=== PATIENT | female | born 1985 | race Caucasian/White ===

== ENCOUNTER 2016-05-03 18:47 | Observation (INO) ==
[2016-05-03 19:37] LABS: Bilirubin,Urine Negative (Negative); Blood,Urine Negative (Negative); Clarity,Urine Cloudy (Clear); Color,Urine Yellow (Yellow); Glucose,Urine (UA) Normal (Normal); Ketones,Urine Negative (Negative); Leukocyte Esterase,Urine Negative (Negative); Nitrite,Urine Negative (Negative); Protein,Urine Trace mg/dL (Neg-Trace); Specific Gravity,Urine 1.027 (1.010-1.025); Urobilinogen,Urine Normal (Normal)
[2016-05-03 19:38] LABS: Bacteria,Urine Few per hpf (None-Few); Hyaline Casts,Urine None Seen per lpf (None-Few); RBC,Urine 0-3 per hpf (0-3); Squamous Epithelial Cell,Urine Many per lpf (None-Few); WBC,Urine 0-3 per hpf (0-3)
--- NOTE | 2016-05-03 20:00 | OB/GYN Progress Note ---
Date of Encounter: 05/03/16 Time of Encounter: 20:00 - Assessment and Plan (1) First in adolescent 16 years of age or older in second trimester Current Visit: Yes Status: Acute (2) 22 weeks gestation of Current Visit: Yes Status: Acute (3) Peripheral edema Current Visit: Yes Status: Acute (4) Vaginitis affecting in second trimester, antepartum Current Visit: Yes Status: Acute (5) Lower abdominal pain Current Visit: Yes Status: Acute Subjective - Subjective Interval history: Patient is a 31-year-old 1 para 0 at approximately 20-23 weeks who presented with complaint of swelling of the extremities abdominal pain and vaginal discharge. Patient had received her care in [place] that has not been seen for the last month. She states she has moved and has been unable to get established yet. Patient states our office is waiting for her to get her records sent over she has not been able to get to [place] to get that signed. The patient states that she just noticed increased swelling of her hands and feet in this lower abdominal discomfort. Patient's having upper abdominal discomfort but she has been coughing a lot not sure she just pulled a muscle. She denies dysuria urgency frequency but has been complaining of a greenish discharge May 27 days ago nothing today. She is still getting good movement. Patient states she was placed on by mouth progesterone first part of the because her progesterone level was low to just maintain the . She is no longer on that. She states that she did receive program due to some spotting earlier in the . Antepartum ROS: contractions, other (Vaginal discharge and swelling) Objective - Vital Signs Vital Signs: Intake and Output 05/03/16 05/03/16 05/03/16 07:59 15:59 23:59 Other: Weight 123.9 kg Patient Weight 05/03/16 23:59 Weight 123.9 kg - Exam FHR: category 1 FHR comments: heart tones 140s reassuring no contractions Abdomen: Present: soft, gravid Uterus: Present: normal, firm Cervical dilation: closed Cervix effacement: thick station: NE Comments: Sterile speculum exam performed on the patient no discharge seen wet mount was obtained which was negative. - Labs Labs: Abnormal lab results Urine Clarity Cloudy (Clear) A 05/03/16 19:29 Ur Specific [place] 1.027 (1.010-1.025) H 05/03/16 19:29 Ur Squamous Epith Cells Many per lpf (None-Few) H 05/03/16 19:29
== END 2016-05-03 20:20 | disposition home or self-care (01) ==
LOC: 1NENULAB
PROVIDERS: ADMIT Obstetrics & Gynecology; ATTEND Obstetrics & Gynecology

== ENCOUNTER → 2016-07-02 15:45 | Observation (INO) ==
[2016-07-02 13:43] LABS: Bilirubin,Urine Negative (Negative); Blood,Urine Negative (Negative); Clarity,Urine Cloudy (Clear); Color,Urine Yellow (Yellow); Glucose,Urine (UA) Normal (Normal); Ketones,Urine Negative (Negative); Leukocyte Esterase,Urine Moderate (Negative); Nitrite,Urine Negative (Negative); PH,Urine 6.5 pH Units (5.0-8.0); Protein,Urine Negative (Neg-Trace); Specific Gravity,Urine 1.015 (1.010-1.025); Urobilinogen,Urine Normal (Normal)
[2016-07-02 13:46] LABS: Hyaline Casts,Urine None Seen per lpf (None-Few); RBC,Urine 0-3 per hpf (0-3); Squamous Epithelial Cell,Urine Many per lpf (None-Few); WBC,Urine 15-30 per hpf (0-3)
[2016-07-02 13:54] LABS: Bacteria,Urine Few per hpf (None-Few); Calcium Oxalate Crystals,Urine Present; Yeast,Urine Few per hpf (None Seen)
--- NOTE | 2016-07-02 15:37 | Discharge Summary ---
Date of Encounter: 07/02/16 Time of Encounter: 15:35 - Discharge Diagnosis (1) 31 weeks gestation of Priority: Primary Status: Acute (2) Vaginal discharge during in third trimester Priority: Primary Status: Acute Comments: 31 and 6 weeks gestation presents to triage for increased vaginal discharge and itching, also complains of abdominal cramping. Patient called office 2 days ago and was instructed to begin Monistat [id number] for treatment of yeast infection symptoms. Patient states she only started the Monistat last night. Speculum exam shows thick white discharge in vaginal vault and cervical exam shows closed and thick cervix. Urinalysis positive for yeast and few bacteria seen, reflex culture obtained. Patient reports good movement, denies vaginal bleeding or leaking of thin clear liquid. Discussed with patient she needs to continue using the 3 day Monistat cream, discharge to home discussed when to call provider and when to return to triage for evaluation. monitoring reactive and appropriate for gestational age (3) NST (non-stress test) reactive Priority: Secondary Status: Acute Comments: Baseline 135 - Discharge Medications Home Medications: Vit/Iron Fumarate/FA [ Tablet] 1 each PO DAILY 05/03/16 [ History] Allergies/Adverse Reactions: Allergies No Known Allergies Allergy (Verified 05/03/16 19:10) Data Procedures and tests throughout hospitalization: Laboratory Tests 07/02/16 13:15 Urine Color Yellow Urine Clarity Cloudy A Urine pH 6.5 Ur Specific [place] 1.015 Urine Protein Negative Urine Glucose (UA) Normal Urine Ketones Negative Urine Blood Negative Urine Nitrite Negative Urine Bilirubin Negative Urine Urobilinogen Normal Ur Leukocyte Esterase Moderate H Urine Microscopic RBC 0-3 Urine Microscopic WBC 15-30 H Ur Squamous Epith Cells Many H Calcium Oxalate Crystal Present Urine Bacteria Few Hyaline Casts None Seen Urine Yeast Few H Ur Culture Indicated? YES A Labs on day of discharge: Labs from last 24 hours 07/02/16 13:15 Urine Color Yellow Urine Clarity Cloudy A Urine pH 6.5 Ur Specific [place] 1.015 Urine Protein Negative Urine Glucose (UA) Normal Urine Ketones Negative Urine Blood Negative Urine Nitrite Negative Urine Bilirubin Negative Urine Urobilinogen Normal Ur Leukocyte Esterase Moderate H Urine Microscopic RBC 0-3 Urine Microscopic WBC 15-30 H Ur Squamous Epith Cells Many H Calcium Oxalate Crystal Present Urine Bacteria Few Hyaline Casts None Seen Urine Yeast Few H Ur Culture Indicated? YES A Date of admission: 07/02/16 12:19 Primary care physician: PCP NO Discharging clinician: Ludmila Tapia Anticipated date of discharge: 07/02/16 - Patient Status Disposition: Home, Self-Care Condition: Good Overall status at discharge: patient is back to baseline - Discharge Instructions Follow Up With: NO,PCP [Primary Care Provider] - - Diet and Activity Activity: resume usual activities as tolerated Diet: regular diet Hospital Course HEART NURSE Time Attestation: Total time spent providing and/or coordinating discharge services: Exam - Constitutional General appearance IM: A&O X 3 - Respiratory Respiratory exam: Present: CTAB - Cardiovascular Cardiovascular exam IM: Present: RRR, +S1, +S2 - GI/Abdominal GI/Abdominal exam IM: normal bowel sounds (gravid), soft - Extremities Exam Extremities exam IM: Present: normal capillary refill, normal inspection - Neurological Exam Neurological exam: normal gait, oriented X3
== END | disposition home or self-care (01) ==
LOC: 1NENULAB
PROVIDERS: ADMIT Obstetrics & Gynecology; ATTEND Obstetrics & Gynecology

== ENCOUNTER 2016-08-22 08:00 | Inpatient (IN) ==
[2016-08-22] MEDS ORDERED: Naloxone 0.4 MG/ML INJ IVP PRN (09:01)
[2016-08-22] MEDS ORDERED: Famotidine 20 MG/2 ML VIAL IVP PRN (09:01)
[2016-08-22] MEDS ORDERED: Metoclopramide 10 MG/2 ML VIAL IVP PRN (09:01)
[2016-08-22] MEDS ORDERED: *HR* Nalbuphine 20 MG/ML AMPUL IVP PRN (09:05)
[2016-08-22 09:18] LABS: Basophils # 0.1 K/mcL (0.0-0.2); Basophils % 0.3 %; Eosinophils # 0.2 K/mcL (0.0-0.6); Hematocrit 35.9 % (35.3-44.9); Hemoglobin 12.1 g/dL (11.5-15.4); Immature Granulocytes % 0.8 % (0-4); Lymphocytes # 3.1 K/mcL (0.6-4.6); Lymphocytes % 14.1 %; Mean Corpuscular HGB Conc 33.7 g/dL (31.6-35.5); Mean Corpuscular Hemoglobin 29.4 pg (28.0-33.3); Mean Corpuscular Volume 87.1 fL (83.0-100.0); Mean Platelet Volume 10.2 fL (9.4-12.4); Monocytes # 0.7 K/mcL (0.0-1.3); Neutrophils # 17.6 K/mcL (1.6-8.9); Platelet Count 433 K/mcL (140-400); Red Blood Count 4.12 M/mcL (3.82-4.97); Segmented Neutrophils % 80.8 %
[2016-08-22] MEDS: Ringers Solution, Lactated 1,000 ML IVC SCH ×2 (09:30→18:18)
[2016-08-22] MEDS: miSOPROStol 25 MCG TABLET VG SCH ×2 (09:30→13:51)
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
[2016-08-22] MEDS ORDERED: Penicillin G Potassium 5,000,000 UNIT in D5% in Water (Mini-Bag+) 100 ML IVPB ONE (10:00)
[2016-08-22] MEDS ORDERED: miSOPROStol 25 MCG TABLET VG SCH (12:00)
[2016-08-22] MEDS: Ondansetron 4 MG/2 ML VIAL IVP PRN ×2 (12:33→18:11)
[2016-08-22] MEDS: Penicillin G Potassium 2,500,000 UNIT in D5% in Water 100 ML IVPB SCH ×2 (13:50→18:12)
--- NOTE | 2016-08-22 16:40 | OB Labor Progress Note ---
Date of Encounter: 08/22/16 Time of Encounter: 16:35 Labor Progress Note - Subjective Subjective: Patient still doing well mauro catheter still in place, she has received 2 doses of Cytotec - Cervix Cervix: 2- mauro catheter palpated half out of cervix but will my come out with traction - Heart Tones Heart Tones: FHT's 140's reactive - [place]: contractions irregular - Plan Plan: Continue current care we will recheck in one hour to see if Mauro is out and we will discuss artificial rupture membranes and internal monitors to see what the contractions are doing
[2016-08-22] MEDS ORDERED: *HR* Nalbuphine 20 MG/ML AMPUL ONE (18:16)
--- NOTE | 2016-08-22 19:29 | OB Labor Progress Note ---
Date of Encounter: 08/22/16 Time of Encounter: 19:30 Labor Progress Note - Subjective Subjective: Patient is very uncomfortable and has received a dose of Nubain requesting epidural. Mauro catheter is still not out - Cervix Cervix: /-2 mauro catheter deflated and removed artificial rupture membranes meconium fluid noted - Heart Tones Heart Tones: heart tones 140s reactive scalp lead placed - [place]: IUPC placed and contractions every 2 minutes. - Plan Plan: we will get patient an epidural, will augment with Pitocin, plan is to anticipate vaginal delivery
[2016-08-22] MEDS ORDERED: Oxytocin 20 units/ LR 1000 mL 20 UNIT/1,000 ML BAG IVC SCH (19:30)
[2016-08-22] MEDS ORDERED: 0.9 % Sodium Chloride 1,000 ML ONE (19:36)
[2016-08-22] MEDS ORDERED: EPHEDrine 50 MG/ML VIAL IVP PRN (19:44)
[2016-08-22] MEDS ORDERED: Ringers Solution, Lactated 500 ML IVC ONE (19:44)
[2016-08-22] MEDS ORDERED: Epidural Premix (fent/bupiv) 110 ML EP SCH (19:45)
[2016-08-22] MEDS ORDERED: Epidural Premix (fent/bupiv) 110 ML EP ONE (19:47)
--- NOTE | 2016-08-22 20:26 | Anesthesia Evaluation PreOp ---
Date of Encounter: 08/22/16 Time of Encounter: 20:24 - Past History Planned Operation: BERNADETTE Cardiac History: Denies any Significant Hx Pulmonary History: Smoker, Pack/yr (1/2 pack/day) CURAM DEVELOPER History: Denies Any Significant HX Other Medical History: Denies Any Significant HX Anesthesia History: No Prior Anesthetic Complications Alcohol Use: none Drug use: none Medications and Allergies Vit/Iron Fumarate/FA [ Tablet] 1 each PO DAILY 05/03/16 [ History] Allergies No Known Allergies Allergy (Verified 08/22/16 08:49) - Meds/Allergy Pre-op Review Medications Reviewed: Yes Allergies Reviewed: Yes Beta Blockers on Current Med List: No Anesthesia Results - Labs 08/22/16 08:55 Anesthesia Exam Height: 5'4" Weight: 128kg NPO (# of Hours): 8 Pain Scale: 10 Pain Scale Used: Numeric (1 - 10) - HEENT Pupil (Motor): Pupils equal Mallampati: II Teeth: Normal Oral Opening: Greater than 3 - CURAM DEVELOPER LOC: Oriented CURAM DEVELOPER Motor: Normal RUE, Normal LUE, Normal RLE, Normal LLE, Normal Face CURAM DEVELOPER Sensory: Normal: RUE, LUE, RLE, LLE, Face - Cardiac Rhythm: Regular Murmur: None JVD: No Carotid Bruit: No - Pulmonary Breath Sounds: bilateral Clear Respiratory Effort: Symmetrical Anesthesia Assess/Plan ASA Score: 3 Modified [place] Scale for Level of Consciousness: Cooperative, oriented, and tranquil Anesthetic Plan: General (plan b), Regional (plan a) Autologous Blood: Yes Monitoring Plan: Standard Monitors
--- NOTE | 2016-08-22 20:28 | Anesthesia Procedures ---
Date of Encounter: 08/22/16 Time of Encounter: 20:26 Procedures: Anesthesia - Epidural/Spinal Patient ID/Chart reviewed: Yes Patient examined: Yes OB Eval: Gestational age: 39.1 OB Eval: : 3 OB Eval: Hx Para: 0 OB Eval: Dilated at (cm): 4 OB Eval: Contractions: Non-stressed pattern Consent Obtained: Yes Supplemental Oxygen: None/Room Air Site Prep: Aseptic Technique, Sterile prep and drape, Povidone-Iodine 1% Patient position: upright Local Anesthetic: Lidocaine 1% Amount of Local Anesthetic used: 3 Touhy Needle Gauge: 18 Touhy Needle Depth (cm): 10 Catheter Depth at Skin (cm): 20 Test Dose (1.5% Lido + Epi): Volume given (mls): 5 Test Dose Result: Negative Loading Dose: Other: 8mls of epidural pharm bag premix solution Loading Dose Administered: Thru Catheter Infusion Med: 0.125% Bupivacaine w/ 2 mcg/ml Fentanyl Infusion Rate (mls/hr): 14 ([id number]) Catheter Secured in Place: Tegaderm, Tape Interspace Used: L3-L4 Loss of Resistance (DANGELO): Yes Blood: No CSF: No Paresthesia: No Procedure: pt tolerated procedure well. no complications. vss. fhr stable 125/58 hr 60 135/63 hr 60 141/62 hr 60
[2016-08-22] MEDS ORDERED: Lidocaine/EPI 1:200k 2% PF 20 ML VIAL ONE (22:23)
[2016-08-22] MEDS ORDERED: Chloroprocaine/PF 20 ML VIAL INFILT ONE (22:23)
--- NOTE | 2016-08-22 22:23 | OB Labor Progress Note ---
Date of Encounter: 08/22/16 Time of Encounter: 22:20 Labor Progress Note - Subjective Subjective: Patient still comfortable with epidural started to have repetitive late decelerations. Patient has made no cervical change with adequate contractions and 4 hours and a section has been called. - Cervix Cervix: 4/80/-3 - Heart Tones Heart Tones: heart tones 140s with repetitive late decelerations - Peter Peter: Contractions every 2 minutes adequate greater than 240 montivedeo units - Plan Plan: Pitocin has been turned off patient is being prepared for a primary low transverse section
[2016-08-22] MEDS ORDERED: *HR* Oxytocin 10 UNIT/ML VIAL IM ONE (22:24)
[2016-08-22] MEDS ORDERED: EPHEDrine 50 MG/ML VIAL ONE (22:25)
[2016-08-22] MEDS ORDERED: ceFAZolin 3,000 MG in D5% in Water 100 ML IVPB ONE (22:41)
[2016-08-22] MEDS ORDERED: Ringers Solution, Lactated 1,000 ML ONE (22:54)
[2016-08-22] MEDS ORDERED: Vancomycin 2,000 MG in D5% in Water 250 ML IVPB SCH (23:00)
[2016-08-22] MEDS ORDERED: Vancomycin 2,000 MG in D5% in Water 500 ML IVPB SCH (23:00)
[2016-08-22] MEDS ORDERED: *HR* Morphine Sulfate/PF 5 MG/10 ML AMPUL ONE (23:05)
[2016-08-22] MEDS ORDERED: Ondansetron 4 MG/2 ML VIAL IVP ONE (23:12)
[2016-08-22] MEDS ORDERED: Ringers Solution, Lactated 1,000 ML IVC SCH (23:15)
[2016-08-22] MEDS ORDERED: Ondansetron 4 MG/2 ML VIAL ONE (23:28)
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
[2016-08-23] MEDS: *HR* HYDROmorphone (PF) 1 MG/ML SYRINGE IVP PRN ×2 (00:50→01:22)
[2016-08-23] MEDS ORDERED: *HR* HYDROmorphone (PF) 1 MG/ML SYRINGE IVP PRN (00:56)
[2016-08-23] MEDS ORDERED: *HR* Morphine 2 MG/ML SYRINGE IVP PRN (00:56)
[2016-08-23] MEDS ORDERED: Simethicone 80 MG TAB.CHEW PO PRN (02:43)
[2016-08-23] MEDS ORDERED: Naloxone 0.4 MG/ML INJ IVP PRN (02:43)
[2016-08-23] MEDS ORDERED: Sennosides 8.6 MG TABLET PO PRN (02:43)
[2016-08-23] MEDS ORDERED: Ondansetron 4 MG/2 ML VIAL IVP PRN (02:43)
[2016-08-23] MEDS ORDERED: Metoclopramide 10 MG/2 ML VIAL IVP PRN (02:43)
[2016-08-23] MEDS ORDERED: Ringers Solution, Lactated 1,000 ML IVC SCH (02:43)
[2016-08-23] MEDS ORDERED: Rho Immune Globulin 1,500 UNIT SYRINGE IM ONE (02:43)
[2016-08-23] MEDS ORDERED: Oxytocin 20 units/ LR 1000 mL 20 UNIT/1,000 ML BAG IVC SCH (02:43)
[2016-08-23] MEDS: *HR* OxyCODONE/APAP 5/325 TABLET PO PRN ×4 (03:43→23:02)
[2016-08-23 05:41] LABS: Basophils # 0.1 K/mcL (0.0-0.2); Basophils % 0.3 %; Eosinophils # 0.1 K/mcL (0.0-0.6); Eosinophils % 0.4 %; Hematocrit 31.6 % (35.3-44.9); Immature Granulocytes % 0.6 % (0-4); Lymphocytes # 3.5 K/mcL (0.6-4.6); Lymphocytes % 15.6 %; Mean Corpuscular HGB Conc 32.6 g/dL (31.6-35.5); Mean Corpuscular Hemoglobin 28.7 pg (28.0-33.3); Mean Platelet Volume 10.6 fL (9.4-12.4); Monocytes # 0.9 K/mcL (0.0-1.3); Monocytes % 3.8 %; Neutrophils # 17.9 K/mcL (1.6-8.9); Platelet Count 360 K/mcL (140-400); Red Blood Count 3.59 M/mcL (3.82-4.97); Segmented Neutrophils % 79.3 %
[2016-08-23 05:44] LABS: Hemoglobin 10.3 g/dL (11.5-15.4)
--- NOTE | 2016-08-23 08:39 | OB/GYN Progress Note ---
Date of Encounter: 08/23/16 Time of Encounter: 08:37 - Assessment and Plan (1) Status post delivery Current Visit: Yes Status: Acute Routine postop/ care. Advance to regular diet. Subjective - Subjective Principal diagnosis: POD #1 primary c/s Interval history: Patient denies any complaints. She would like a regular diet. Pain is well controlled. She denies any concerns. Patient reports: appetite normal, pain well controlled, no nauseated [place]: doing well Objective - Vital Signs Latest vital signs: Vital Signs Temp Pulse Resp BP Pulse Ox 08/23/16 07:30 98.5 F 79 16 103/62 08/23/16 05:46 97.9 F 65 18 96/66 96 08/23/16 04:45 98.4 F 72 16 103/55 95 08/23/16 03:45 97.9 F 80 16 120/62 96 08/23/16 03:15 98.1 F 70 16 129/69 97 08/23/16 02:45 98 F 64 14 121/66 94 Intake and Output 08/22/16 08/23/16 08/23/16 23:59 07:59 15:59 Intake Total 1000 / 1000 1000 / 1000 Output Total 2100 / 2100 Balance 1000 / 1000 -1100 / -1100 Intake: IV Fluids 1000 / 1000 Lactated Ringers 1,000 ML 1000 / 1000 @ 125 mls/hr IVC .Q8H NIMA Rx#:[id number] Intake, Autotransfusion 1000 / 1000 Amount Output: Urine 400 / 400 Urethral (Polanco) 400 / 400 Estimated Blood Loss 700 / 700 Catheter 1000 / 1000 Other: Weight 124.936 kg Patient Weight 08/23/16 23:59 Weight 124.936 kg - Exam Lungs: bilateral: normal Chest: Normal S1, Normal S2 Extremities: Present: normal Abdomen: Present: normal appearance, soft. Absent: distention, tenderness Incision: Present: dressed Uterus: Present: normal, firm - Labs Labs: Laboratory Results - last 24 hr 08/22/16 08/23/16 08/23/16 08:55 01:21 04:53 WBC 21.7 H 22.6 H RBC 4.12 3.59 L Hgb 12.1 10.3 L D Hct 35.9 31.6 L MCV 87.1 88.0 MCH 29.4 28.7 MCHC 33.7 32.6 RDW 13.0 13.0 Plt Count 433 H 360 MPV 10.2 10.6 Immature Gran % 0.8 0.6 Seg Neutrophils % 80.8 79.3 Lymphocytes % 14.1 15.6 Monocytes % 3.0 3.8 Eosinophils % 1.0 0.4 Basophils % 0.3 0.3 Neutrophils # 17.6 H 17.9 H Lymphocytes # 3.1 3.5 Monocytes # 0.7 0.9 Eosinophils # 0.2 0.1 Basophils # 0.1 0.1 Baby's Blood Type O RH NEGATIVE Mother's Blood Type O RH NEGATIVE Rhogam Indicated NO
[2016-08-23] MEDS: Prenatal Vit/FA 1 EACH TABLET PO SCH (08:43)
[2016-08-23] MEDS ORDERED: Prenatal Vit/FA 1 EACH TABLET PO SCH (09:00)
[2016-08-23] MEDS: *HR* OxyCODONE/APAP 10/325 TABLET PO PRN (18:05)
[2016-08-23] MEDS: Ibuprofen 600 MG TABLET PO PRN (20:34)
[2016-08-24] MEDS: *HR* OxyCODONE/APAP 10/325 TABLET PO PRN (06:44)
[2016-08-24] MEDS: Ibuprofen 600 MG TABLET PO PRN (07:49)
[2016-08-24] MEDS: Prenatal Vit/FA 1 EACH TABLET PO SCH (07:50)
[2016-08-24 08:21] VITALS: BP 103/59
--- NOTE | 2016-08-24 11:24 | Discharge Summary ---
Date of Encounter: 08/24/16 Time of Encounter: 11:22 - Discharge Diagnosis (1) Mother currently breast-feeding Priority: Secondary Status: Acute (2) Status post delivery Priority: Primary Status: Acute Comments: Patient meeting post-op milestones as expected. - Discharge Medications Prescriptions: OxyCODONE/APAP 5/325 [Percocet 5/325 MG] 1 each PO Q4HR PRN #30 tablet PRN Reason: Moderate pain 4-6 Ibuprofen [Motrin] 600 mg PO Q6HR PRN #60 tablet PRN Reason: Cramping Breast Pump [BREAST PUMP] 1 each .ROUTE AD #1 each Docusate [Colace] 100 mg PO BID #60 capsule Home Medications: Vit/Iron Fumarate/FA [ Tablet] 1 each PO DAILY 05/03/16 [ History] Breast Pump [BREAST PUMP] 1 each .ROUTE AD #1 each 08/24/16 [Rx] Docusate [Colace] 100 mg PO BID #60 capsule 08/24/16 [Rx] Ibuprofen [Motrin] 600 mg PO Q6HR PRN #60 tablet 08/24/16 [Rx] OxyCODONE/APAP 5/325 [Percocet 5/325 MG] 1 each PO Q4HR PRN #30 tablet 08/24/16 [Rx] Allergies/Adverse Reactions: Allergies No Known Allergies Allergy (Verified 08/22/16 08:49) Data Procedures and tests throughout hospitalization: Laboratory Tests 08/22/16 08/23/16 08/23/16 08:55 01:21 04:53 WBC 21.7 H 22.6 H RBC 4.12 3.59 L Hgb 12.1 10.3 L D Hct 35.9 31.6 L MCV 87.1 88.0 MCH 29.4 28.7 MCHC 33.7 32.6 RDW 13.0 13.0 Plt Count 433 H 360 MPV 10.2 10.6 Immature Gran % 0.8 0.6 Seg Neutrophils % 80.8 79.3 Lymphocytes % 14.1 15.6 Monocytes % 3.0 3.8 Eosinophils % 1.0 0.4 Basophils % 0.3 0.3 Neutrophils # 17.6 H 17.9 H Lymphocytes # 3.1 3.5 Monocytes # 0.7 0.9 Eosinophils # 0.2 0.1 Basophils # 0.1 0.1 Baby's Blood Type O RH NEGATIVE Mother's Blood Type O RH NEGATIVE Rhogam Indicated NO Date of admission: 08/22/16 08:27 Primary care physician: PCP NO Discharging clinician: Trini Cedillo Anticipated date of discharge: 08/24/16 - Patient Status Disposition: Home, Self-Care Condition: Good Functional capacity at discharge: independent ambulation Overall status at discharge: patient is progressing back to baseline - Discharge Instructions Follow Up With: NO,PCP [Primary Care Provider] - Sergio Ross DO [Partnered Physician] - - Diet and Activity Activity: increase activity as tolerated Diet: regular diet Hospital Course Reason for admission: induction of labor Delivery: section Episiotomy: none Laceration: none Other procedures: none complications: none Discharge diagnosis: IUP at term delivered [place] baby: male Hospital course: - Date of procedure: 08/23/16 Preop diagnosis: other (Intrauterine at 39 and 2/7 weeks, failure to progress, nonreassuring heart tones category 3 strip with repetitive late decelerations) Post-op diagnosis: same Procedure: primary low transverse Surgeon: Sergio Ross Estimated blood loss (cc): 700 Anesthesiologist: Dale Byrne Fresh Work Inspector: Oliver Saleem Anesthesia Type: Epidural section complications: none Disposition: L&D Recovery Room Specimens: Placenta - (s) A Delivery Date: 08/22/16 Infant Delivery Time: 23:14 Presentation: vertex Route of delivery: other ( section) Gender: Male Viability: Viable Pounds: 6 Ounces: 14 Gram Weight: 3.105 kg at 1 minute: 8 at 5 minutes: 9 Shoulder Dystocia: not encountered Specimens collected: cord blood Placenta: spontaneous Cord: 3 umbilical vessels Time Attestation: Total time spent providing and/or coordinating discharge services: Time Spent: Less than 30 minutes - VTE Reasons for not Prescribing Prophylaxis: Medical contraindication Documentation of Mechanical Device: Intermittent pneumatic compression device Exam - Constitutional Vitals: Temp Pulse Resp BP Pulse Ox 98.3 F 76 16 103/59 97 08/24/16 07:50 08/24/16 07:50 08/24/16 07:50 08/24/16 07:50 08/23/16 19:30 General appearance IM: cooperative, A&O X 3, pleasant, no acute distress, obese - Respiratory Respiratory exam: Present: CTAB - Cardiovascular Cardiovascular exam IM: Present: RRR, +S1, +S2 - GI/Abdominal GI/Abdominal exam IM: normal bowel sounds, soft Incision: normal, dry, intact - Rectal Rectal exam: deferred - External exam: normal external exam Uterine Tone: Firm Uterus Position: 2 Fingers Below Umbilicus - Extremities Exam Extremities exam IM: Present: full ROM, pedal edema (+1 edema to BLE) - Neurological Exam Neurological exam: alert, normal gait, oriented X3 - Psychiatric Additional comments: Reports good mood.
== END 2016-08-24 15:30 | disposition home or self-care (01) | DRG 540 ==
LOC: 1NENULAB 08:27 → 1NENUOBS 08-23 03:23
PROVIDERS: ADMIT Obstetrics & Gynecology; ATTEND Obstetrics & Gynecology

== ENCOUNTER 2017-01-24 15:33 | Inpatient (IN) ==
[~2017-01-24 15:33] MED LIST: Aminoglycoside Consult 1 EACH MC ONE
[2017-01-24] MEDS ORDERED: Ketorolac 15 MG/ML VIAL IVP ONE (16:21)
[2017-01-24] MEDS ORDERED: Vancomycin 1,750 MG in D5% in Water 500 ML IVPB ONE (16:21)
[2017-01-24 16:53] LABS: Basophils # 0.1 K/mcL (0.0-0.2); Basophils % 0.5 %; Eosinophils # 0.6 K/mcL (0.0-0.6); Eosinophils % 3.7 %; Hematocrit 38.8 % (35.3-44.9); Hemoglobin 13.2 g/dL (11.5-15.4); Immature Granulocytes % 0.4 % (0-4); Lymphocytes # 3.8 K/mcL (0.6-4.6); Lymphocytes % 23.1 %; Mean Corpuscular Hemoglobin 28.4 pg (28.0-33.3); Mean Corpuscular Volume 83.6 fL (83.0-100.0); Monocytes # 0.6 K/mcL (0.0-1.3); Monocytes % 3.5 %; Neutrophils # 11.4 K/mcL (1.6-8.9); Platelet Count 499 K/mcL (140-400); Red Blood Count 4.64 M/mcL (3.82-4.97); Red Cell Distribution Width 13.4 % (11.5-14.5); Segmented Neutrophils % 68.8 %
[2017-01-24 17:08] LABS: BUN/Creatinine Ratio 10 (6-26); Blood Urea Nitrogen 7 mg/dL (7-20); Calcium 8.6 mg/dL (8.6-10.8); Carbon Dioxide 22 mEq/L (19-29); Chloride 109 mEq/L (98-109); Glucose 91 mg/dL (70-99); Osmolality,Calculated 288 (280-300); Potassium 3.8 mEq/L (3.5-4.5); Sodium 140 mEq/L (136-145); eGFR For African Americans > 60 (> 60); eGFR For Non-African Americans > 60 (> 60)
--- NOTE | 2017-01-24 17:32 | Emergency Department Note ---
Disposition Clinical Impression: Failure of outpatient treatment Cellulitis Qualifiers: Site of cellulitis: unspecified site Qualified Code(s): L03.90 - Cellulitis, unspecified Disposition: Admitted As Inpatient Condition: Good Time of Disposition: 17:33 General Adult HPI - General Chief complaint: ED Skin/Abscess/Foreign Body Stated complaint: worsening cellulitis Time Seen by Provider: 01/24/17 15:42 Source: patient, family Mode of arrival: ambulatory Limitations: no limitations Nursing Notes Reviewed: Yes Vital Signs Reviewed: Yes - History of Present Illness HPI Narrative: 31-year-old female presenting to the emergency department and chief complaint of worsening cellulitis. Patient states for the past month she has been in and out of of urgent care for her worsening cellulitis. She has taken Bactrim and then clindamycin and then bactrim again. Each time she has taken the antibiotics the cellulitis has gotten better and then once she stopped them and has come back within 24 hours. Her last dose of antibiotics was yesterday. She does also disclosed subjective fevers at home along with nausea and diffuse myalgia. Patient is otherwise healthy and has no past medical history. She does not take any medications at this time besides the antibiotics she was on. Pain Scale: 8 - Related Data Home Medications Medication Instructions Recorded Confirmed Vit/Iron Fumarate/FA 1 each PO DAILY 05/03/16 08/22/16 [ Tablet] Previous Rx's Medication Instructions Recorded Breast Pump [BREAST PUMP] 1 each .ROUTE AD #1 each 08/24/16 Docusate [Colace] 100 mg PO BID #60 capsule 08/24/16 Ibuprofen [Motrin] 600 mg PO Q6HR PRN #60 tablet 08/24/16 OxyCODONE/APAP 5/325 [Percocet 1 each PO Q4HR PRN #30 tablet 08/24/16 5/325 MG] Allergies Allergy/AdvReac Type Severity Reaction Status Date / Time No Known Allergies Allergy Verified 01/24/17 15:41 All systems ED: reviewed and negative except as stated. Constitutional: Reports: fever (Subjective) Eyes: Reports: as per HPI ENT ED: Reports: as per HPI Cardiovascular: Denies: chest pain, palpitations Respiratory: Denies: cough, dyspnea, wheezes Gastrointestinal: Reports: nausea. Denies: abdominal pain, vomiting, diarrhea Genitourinary: Reports: as per HPI Musculoskeletal: Reports: myalgia Integumentary: Reports: rash Neurological: Reports: as per HPI Psychiatric: Reports: as per HPI Endocrine: Reports: as per HPI Hematological/Lymphatic: Reports: as per HPI Allergic/Immunologic: Reports: as per HPI Past Medical History - Past Medical History Attestation: Yes The following information was validated with the patient. Medical history: Reports: no medical history, other Surgical history: Reports: no surgical history Psychiatric history: Reports: anxiety, bipolar, depression - Social History Smoking Status: Current every day smoker Alcohol use: Reports: none Drug use: Reports: none Physical Exam - General Limitations: no limitations General appearance: alert, in no apparent distress - Head Head exam: atraumatic, normocephalic, normal inspection - Eye Eye exam: Present: normal appearance. Absent: scleral icterus, conjunctival injection - Neck Neck exam: Present: normal inspection, trachea midline. Absent: tenderness, meningismus - Chest Chest inspection: Present: normal inspection, symmetric chest wall rise. Absent : tenderness - Respiratory Respiratory exam: Present: normal lung sounds bilaterally. Absent: respiratory distress, wheezes - Cardiovascular Cardiovascular exam: Present: regular rate, normal rhythm, normal heart sounds - Abdominal Exam Abdominal exam: Present: soft, Non-Tender. Absent: distention, guarding, rebound - Extremities Exam Extremities exam: Present: normal inspection, full ROM - Neurological Exam Neurological exam: Present: alert, oriented X3 - Psychiatric Psychiatric exam: Present: normal affect, normal mood - Skin Skin exam: Present: other (Multiple areas of cellulitic changes noted in the left upper forearm, left breast and left hand. Small area also noted over the left forearm. No fluctuance or crepitus noted. Warmth to the area but no active drainage at this time.) Course Course Narrative: 31-year-old female presenting with cellulitis and failed outpatient therapy. We will obtain basic lab work including CBC and BMP and start her on vancomycin. Patient will need to be admitted for IV treatment for multiple failed outpatient therapies. Patient's alert and oriented 3 in the room. Her vital signs are stable at this time. She agrees with this plan. - Reevaluation(s) Reevaluation #1: Patient's white blood cell count elevated at 16.6. I spoke with the hospitalist correctional case manager who agrees to accept the patient at this time. Patient's alert and oriented 3 in the room with stable vital signs at time of admission. Vital Signs Temperature 97.9 F 01/24/17 15:38 Pulse Rate 98 01/24/17 15:38 Respiratory Rate 16 01/24/17 15:38 Blood Pressure 145/89 01/24/17 15:38 O2 Sat by Pulse Oximetry 100 01/24/17 15:38 Temperature 98.2 F 01/24/17 18:35 Pulse Rate 70 01/24/17 18:35 Respiratory Rate 14 01/24/17 18:35 Blood Pressure 105/70 01/24/17 18:35 O2 Sat by Pulse Oximetry 99 01/24/17 18:35 Oxygen Delivery Oxygen Delivery Room Air Medical Decision Making - Lab Data Lab results reviewed: Yes I reviewed the patient's lab results. Result diagrams: 01/24/17 16:44 01/24/17 16:44 Lab Results 01/24/17 01/24/17 Range/Units 16:44 16:44 WBC 16.6 H (4.3-11.1) K/mcL RBC 4.64 (3.82-4.97) M/mcL Hgb 13.2 (11.5-15.4) g/dL Hct 38.8 (35.3-44.9) % MCV 83.6 (83.0-100.0) fL MCH 28.4 (28.0-33.3) pg MCHC 34.0 (31.6-35.5) g/dL RDW 13.4 (11.5-14.5) % Plt Count 499 H (140-400) K/mcL MPV 10.0 (9.4-12.4) fL Immature Gran % 0.4 (0-4) % Seg Neutrophils % 68.8 % Lymphocytes % 23.1 % Monocytes % 3.5 % Eosinophils % 3.7 % Basophils % 0.5 % Neutrophils # 11.4 H (1.6-8.9) K/mcL Lymphocytes # 3.8 (0.6-4.6) K/mcL Monocytes # 0.6 (0.0-1.3) K/mcL Eosinophils # 0.6 (0.0-0.6) K/mcL Basophils # 0.1 (0.0-0.2) K/mcL Sodium 140 (136-145) mEq/L Potassium 3.8 (3.5-4.5) mEq/L Chloride 109 (98-109) mEq/L Carbon Dioxide 22 (19-29) mEq/L BUN 7 (7-20) mg/dL Creatinine 0.67 (0.57-1.11) mg/dL Est GFR ( Amer) > 60 (> 60) Est GFR (Non-Af Amer) > 60 (> 60) BUN/Creatinine Ratio 10 (6-26) Glucose 91 (70-99) mg/dL Calculated Osmolality 288 (280-300) Calcium 8.6 (8.6-10.8) mg/dL Attestation Statement - Attestation Attestation: I examined this patient and my medical decision-making was reviewed with the Resident Physician, Dr. Mathews. I agree with the documented findings, disposition and treatment plan as described except to the extent set forth below. Patient is a 31-year-old white female who presents to the emergency room in today with recurrent cellulitis. Patient with no prior history of skin infections or MRSA and over the past month has been having recurrent areas of cellulitis that she has been going to the urgent care for management for. Patient has been on 2 rounds of antibiotics the last of which she just noticed yesterday and despite this she is still developing new areas of cellulitis. Patient is also complaining of generalized subjective fevers and chills, generalized myalgias and flulike symptoms and nausea. Patient has had no vomiting and has been tolerating her antibiotics without difficulty. Patient states she was initially started on Bactrim and then when she had recurrences she was started on Bactrim and Clinda. Patient has areas of cellulitis on her right upper arm, left breast tissue, and left dorsal hand. I agree with patient's physical exam findings as documented. Vital signs are stable. Patient had an IV established, blood cultures obtained, baseline labs drawn and sent. Patient was started on empiric antibiotics therapy for failed outpatient management of cellulitis. Patient remained hemodynamically stable throughout her ED course. Patient will be admitted for ongoing IV antibiotics and management.
[2017-01-24] MEDS ORDERED: Ondansetron 4 MG/2 ML VIAL IVP PRN (17:52)
[2017-01-24] MEDS ORDERED: Acetaminophen 325 MG TABLET PO PRN (17:52)
[2017-01-24] MEDS ORDERED: Naloxone 0.4 MG/ML INJ IVP PRN (17:52)
--- NOTE | 2017-01-24 17:58 | Internal Med History&Physical ---
Date of Encounter: 01/24/17 Time of Encounter: 17:56 Assessment and Plan (1) Sepsis Current visit: Yes Status: Acute Sepsis secondary to cellulitis in different areas of the skin that failed outpatient therapy Continue vancomycin IV, order test Blood cultures. IV fluids Consider other possibilities such as dermatomyositis, or other immunological conditions Order ANAs and a CK And ambulation for DVT prophylaxis. Patient will be admitted as inpatient, full code. Time spent on this admission 40 minutes. High risk due to failed outpatient therapy Qualifiers: Sepsis type: sepsis due to unspecified organism Qualified Code(s): A41.9 - Sepsis, unspecified organism (2) Tobacco abuse Current visit: Yes Status: Acute Smoking cessation counseling given for 5 minutes, nicotine patch (3) Depression Current visit: Yes Status: Acute Qualifiers: Depression Type: major depressive disorder Major depression recurrence: recurrent Active/Remission status: remission status unspecified Qualified Code(s): F33.9 - Major depressive disorder, recurrent, unspecified (4) Cellulitis Current visit: Yes Status: Acute Qualifiers: Site of cellulitis: unspecified site Qualified Code(s): L03.90 - Cellulitis , unspecified Internal Medicine - H&P: HPI Chief complaint: Cellulitis Admitted From: Emergency Dept History of present illness: Ms. Anderson is a 31 year old female with a past medical history of tobacco use , anxiety, bipolar disorder MRSA 10 years ago and the left breast, who came to the emergency room complaining of recurrent cellulitis in several areas including her left upper extremity left breast and right forearm. Patient mentions that these problems started in different areas on December 15 for which she went to an urgent care facility and she was prescribed Bactrim which improved her symptoms, again she had to go on January 11 and received clindamycin and Bactrim again. The patient mentioned that she finished her antibiotics yesterday but some other areas have been affected including her proximal left upper extremity dorsum of the left hand, left breast and posterior area of the right forearm. She has had non-quantified fevers, chills and generalized muscle pain. Her white blood cell count is 16.6 blood pressure was 145/89. No imaging studies have been done in the emergency room. She was started on vancomycin. Past Med Surg Social Fam HX - Past Medical History Medical history: other (Tobacco use, anxiety, bipolar disorder, MRSA on the left breast/nipple 10 years ago) Psychiatric history: anxiety, bipolar, depression - Past Surgical History Surgical History: no surgical history - Social History Smoking Status: Current every day smoker Packs per day: One pack per day Alcohol use: none Drug use: none - Family History Father Adopted: No Living Status: Still Living Hx Family Cardiac Disorders: Yes (htn) Hx Family Endocrine Disorder: Yes (dm) - Additional Family History Additional family history: Father with CAD, peripheral vascular disease, diabetes and hypertension. Mother with hypertension Internal Medicine - H&P: Meds Vit/Iron Fumarate/FA [ Tablet] 1 each PO DAILY 05/03/16 [ History] Breast Pump [BREAST PUMP] 1 each .ROUTE AD #1 each 08/24/16 [Rx] Docusate [Colace] 100 mg PO BID #60 capsule 08/24/16 [Rx] Ibuprofen [Motrin] 600 mg PO Q6HR PRN #60 tablet 08/24/16 [Rx] OxyCODONE/APAP 5/325 [Percocet 5/325 MG] 1 each PO Q4HR PRN #30 tablet 08/24/16 [Rx] 3 Allergy/AdvReac Type Severity Reaction Status Date / Time No Known Allergies Allergy Verified 01/24/17 15:41 All Systems PM: A 10-system review of systems was performed and is negative for pertinent findings except as documented above in the HPI. Review of systems: No chest pain or short of breath, other systems out of the 10 review of were negative - Constitutional Vitals: Temp Pulse Resp BP Pulse Ox 98.1 F 68 18 136/84 100 01/24/17 17:51 01/24/17 17:51 01/24/17 17:51 01/24/17 17:51 01/24/17 17:51 General appearance: Present: A&O X 3 Exam: Erythema and tenderness and warmth on the proximal left upper extremity, left hand dorsum, left breast and posterior area of the right forearm, induration in all areas no evidence of abscess or collection - Head Head exam: Present: atraumatic, normocephalic - Eye Eye exam: Present: PERRL, conjuntiva pink, sclera anicteric Pupils: Present: PERRL - Neck Neck exam general surgery: Present: supple, trachea midline. Absent: lymphadenopathy - Respiratory Respiratory exam: Present: CTAB. Absent: accessory muscle use, rales, rhonchi, wheezes - Cardiovascular Cardiovascular exam: Present: RRR, +S1, +S2. Absent: diastolic murmur, gallop, rubs, systolic murmur - GI/Abdominal GI/Abdominal exam: Present: normal bowel sounds, soft, no peritoneal signs. Absent: distended, tenderness - Extremities Exam Extremities exam: Present: warm, radial pulses palpable and symmetrical. Absent : calf tenderness, cyanotic, pedal edema - Neurological Exam Neurological exam: Present: CN II-XII intact, oriented X3, no focal deficits. Absent: pronater drift, facial droop, speech deficit - Skin Skin exam: Present: dry, intact Internal Med - H&P Results - Labs CBC & Chem 7: 01/24/17 16:44 01/24/17 16:44
[2017-01-24] MEDS ORDERED: Vancomycin 1,750 MG in D5% in Water 250 ML IVPB SCH (18:00)
[2017-01-24] MEDS: 0.9 % Sodium Chloride 1,000 ML IVC SCH (22:01)
[2017-01-24] MEDS: Nicotine 21 MG PATCH.TD24 TD SCH (22:02)
[2017-01-24] MEDS: Ketorolac 30 MG/ML VIAL IVP PRN (22:03)
[2017-01-25] MEDS: Ketorolac 30 MG/ML VIAL IVP PRN ×3 (03:28→20:14)
[2017-01-25 04:29] LABS: Basophils # 0.1 K/mcL (0.0-0.2); Basophils % 0.6 %; Eosinophils # 0.6 K/mcL (0.0-0.6); Hematocrit 35.5 % (35.3-44.9); Immature Granulocytes % 0.2 % (0-4); Lymphocytes # 3.7 K/mcL (0.6-4.6); Mean Corpuscular HGB Conc 32.7 g/dL (31.6-35.5); Mean Corpuscular Hemoglobin 27.8 pg (28.0-33.3); Mean Corpuscular Volume 84.9 fL (83.0-100.0); Mean Platelet Volume 10.3 fL (9.4-12.4); Monocytes # 0.5 K/mcL (0.0-1.3); Monocytes % 4.1 %; Neutrophils # 7.4 K/mcL (1.6-8.9); Platelet Count 407 K/mcL (140-400); Red Blood Count 4.18 M/mcL (3.82-4.97); Red Cell Distribution Width 13.4 % (11.5-14.5); Segmented Neutrophils % 60.1 %
[2017-01-25 04:35] LABS: Hemoglobin 11.6 g/dL (11.5-15.4)
[2017-01-25 04:47] LABS: BUN/Creatinine Ratio 15 (6-26); Blood Urea Nitrogen 11 mg/dL (7-20); Calcium 7.8 mg/dL (8.6-10.8); Carbon Dioxide 22 mEq/L (19-29); Chloride 110 mEq/L (98-109); Chol/HDL Ratio 6.9 (0-4.9); Cholesterol 145 mg/dL (< 200); Glucose 112 mg/dL (70-99); HDL Cholesterol 21 mg/dL (40-59); LDL Cholesterol,Calculated 97 mg/dL (0-99); Osmolality,Calculated 288 (280-300); Potassium 3.6 mEq/L (3.5-4.5); Sodium 139 mEq/L (136-145); Triglycerides 135 mg/dL (< 150); eGFR For African Americans > 60 (> 60); eGFR For Non-African Americans > 60 (> 60)
[2017-01-25] MEDS ORDERED: Vancomycin 1,750 MG in D5% in Water 500 ML IVPB SCH (05:00)
[2017-01-25] MEDS: Nicotine 21 MG PATCH.TD24 TD SCH (09:01)
--- NOTE | 2017-01-25 09:24 | Internal Med Progress Note ---
Date of Encounter: 01/25/17 Time of Encounter: 09:22 - Assessment and plan (1) Sepsis Current Visit: Yes Status: Acute Assessment and plan: Sepsis secondary to cellulitis in different areas of the skin that failed outpatient therapy Failed outpatient therapy with Bactrim and clindamycin Discontinue vancomycin IV, Blood cultures. IV fluids Consider other possibilities such as other immunological conditions Ordered ANAs Start doxycycline IV, may be able to the discharge tomorrow if continues to improve Qualifiers: Sepsis type: sepsis due to unspecified organism Qualified Code(s): A41.9 - Sepsis, unspecified organism (2) Tobacco abuse Current Visit: Yes Status: Acute Assessment and plan: Smoking cessation counseling, nicotine patch (3) Depression Current Visit: Yes Status: Acute Qualifiers: Depression Type: major depressive disorder Major depression recurrence: recurrent Active/Remission status: remission status unspecified Qualified Code(s): F33.9 - Major depressive disorder, recurrent, unspecified (4) Cellulitis Current Visit: Yes Status: Acute Qualifiers: Site of cellulitis: unspecified site Qualified Code(s): L03.90 - Cellulitis , unspecified - Subjective Interval history: No fevers overnight, denies any chest pain or shortness of breath, no abdominal pain or dysuria. Dermatologic lesions have improved considerably - Constitutional Vitals: Temp Pulse Resp BP Pulse Ox 98.1 F 72 16 129/81 98 01/25/17 07:16 01/25/17 07:16 01/25/17 07:16 01/25/17 07:16 01/25/17 07:16 General appearance: Present: A&O X 3, obese - Head Head exam: Present: atraumatic, normocephalic - Eye Eye exam: Present: PERRL, conjuntiva pink, sclera anicteric Pupils: Present: PERRL - Neck Neck exam general surgery: Present: supple, trachea midline. Absent: lymphadenopathy - Respiratory Respiratory exam: Present: CTAB. Absent: accessory muscle use, rales, rhonchi, wheezes - Cardiovascular Cardiovascular exam: Present: RRR, +S1, +S2. Absent: diastolic murmur, gallop, rubs, systolic murmur - GI/Abdominal GI/Abdominal exam: Present: normal bowel sounds, soft, no peritoneal signs. Absent: distended, tenderness - Extremities Exam Extremities exam: Present: warm, radial pulses palpable and symmetrical. Absent : calf tenderness, cyanotic, pedal edema - Neurological Exam Neurological exam: Present: CN II-XII intact, oriented X3, no focal deficits. Absent: pronater drift, facial droop, speech deficit - Skin Skin exam: Present: dry, intact Additional comments: Erythema over left upper extremity left hand left breast and right forearm have improved considerably Internal Medicine: Result - Labs CBC & Chem 7: 01/25/17 03:57 01/25/17 03:57 Labs: Short CBC 01/25/17 Range/Units 03:57 WBC 12.3 H (4.3-11.1) K/mcL Hgb 11.6 D (11.5-15.4) g/dL Hct 35.5 (35.3-44.9) % Plt Count 407 H (140-400) K/mcL Neutrophils # 7.4 (1.6-8.9) K/mcL BMP 01/25/17 03:57 Sodium 139 Potassium 3.6 Chloride 110 H Carbon Dioxide 22 BUN 11 Creatinine 0.73 Glucose 112 H Calcium 7.8 L Consult Discharge Plan - Plan Referrals: Katrina Wharton, EDGER TECHNICIAN [Primary Care Provider] -
[2017-01-25] MEDS: 0.9 % Sodium Chloride 1,000 ML IVC SCH (10:17)
[2017-01-25] MEDS: Doxycycline 100 MG in 0.9 % Sodium Chloride 150 ML IVPB SCH ×2 (10:22→17:31)
[2017-01-26] MEDS: Ketorolac 30 MG/ML VIAL IVP PRN (04:23)
[2017-01-26 05:37] LABS: Hematocrit 34.4 % (35.3-44.9); Hemoglobin 11.3 g/dL (11.5-15.4); Mean Corpuscular HGB Conc 32.8 g/dL (31.6-35.5); Mean Corpuscular Hemoglobin 28.2 pg (28.0-33.3); Mean Corpuscular Volume 85.8 fL (83.0-100.0); Mean Platelet Volume 10.3 fL (9.4-12.4); Platelet Count 389 K/mcL (140-400); Red Blood Count 4.01 M/mcL (3.82-4.97); Red Cell Distribution Width 13.4 % (11.5-14.5)
[2017-01-26 05:47] LABS: BUN/Creatinine Ratio 16 (6-26); Blood Urea Nitrogen 10 mg/dL (7-20); Calcium 7.8 mg/dL (8.6-10.8); Carbon Dioxide 20 mEq/L (19-29); Chloride 113 mEq/L (98-109); Glucose 103 mg/dL (70-99); Osmolality,Calculated 287 (280-300); Potassium 3.9 mEq/L (3.5-4.5); Sodium 139 mEq/L (136-145); eGFR For African Americans > 60 (> 60); eGFR For Non-African Americans > 60 (> 60)
[2017-01-26] MEDS: Doxycycline 100 MG in 0.9 % Sodium Chloride 150 ML IVPB SCH (06:21)
[2017-01-26] MEDS: Nicotine 21 MG PATCH.TD24 TD SCH (08:15)
[2017-01-26 11:00] VITALS: BP 133/83
--- NOTE | 2017-01-26 14:43 | Discharge Summary ---
Date of Encounter: 01/26/17 Time of Encounter: 14:39 - Discharge Diagnosis (1) Cellulitis Priority: Primary Status: Acute Qualifiers: Site of cellulitis: unspecified site Qualified Code(s): L03.90 - Cellulitis , unspecified - Discharge Medications Prescriptions: Doxycycline Hyclate 100 mg PO BID #20 capsule Home Medications: Etonogestrel/Ethinyl Estradiol [Nuvaring Vaginal Ring] 1 unit VG QMONTH [History] Acetaminophen [Tylenol] 650 mg PO Q6HR PRN tablet 01/26/17 [Rx] Doxycycline Hyclate 100 mg PO BID #20 capsule 01/26/17 [Rx] Nicotine Patch [Nicoderm] 21 mg TD DAILY patch.td24 01/26/17 [Rx] Allergies/Adverse Reactions: 3 Allergy/AdvReac Type Severity Reaction Status Date / Time No Known Allergies Allergy Verified 01/24/17 15:41 Date of admission: 01/24/17 18:14 Primary care physician: Katrina Wharton, Discharging clinician: Bimal Kraft Anticipated date of discharge: 01/26/17 - Patient Status Disposition: Home, Self-Care Condition: Good Overall status at discharge: patient is back to baseline - Discharge Instructions Follow Up With: Katrina Wharton, DIANE [Primary Care Provider] - - Diet and Activity Activity: increase activity as tolerated, resume usual activities as tolerated Diet: advance to your usual diet Hospital course: Ms. Anderson is a 31 year old female admitted for cellulitis. Has been having recurrent cellulitis but no obvious cause. Her primary care physician has already arranged for follow-up with infectious disease in [place] to figure out if there is any immunological process contributing to it. She was switched to doxycycline yesterday and her cellulitis is already resolved. I will give her 10 more days of biopsy as outpatient and discharge her to follow up with her family doctor. Patient is agreeable with the plan. - Time Spent with Patient Total time spent providing and/or coordinating discharge services: Greater than 30 minutes - Constitutional Vitals: Temp Pulse Resp BP Pulse Ox 98.1 F 63 15 133/83 99 01/26/17 10:00 01/26/17 10:00 01/26/17 10:00 01/26/17 10:00 01/26/17 10:00 General appearance: Present: A&O X 3, obese - Head Head exam: Present: atraumatic, normocephalic - Eye Eye exam: Present: PERRL, conjuntiva pink, sclera anicteric Pupils: Present: PERRL - Neck Neck exam general surgery: Present: supple, trachea midline. Absent: lymphadenopathy - Respiratory Respiratory exam: Present: CTAB. Absent: accessory muscle use, rales, rhonchi, wheezes - Cardiovascular Cardiovascular exam: Present: RRR, +S1, +S2. Absent: diastolic murmur, gallop, rubs, systolic murmur - GI/Abdominal GI/Abdominal exam: Present: normal bowel sounds, soft, no peritoneal signs. Absent: distended, tenderness - Extremities Exam Extremities exam: Present: warm, radial pulses palpable and symmetrical. Absent : calf tenderness, cyanotic, pedal edema - Neurological Exam Neurological exam: Present: CN II-XII intact, oriented X3, no focal deficits. Absent: pronater drift, facial droop, speech deficit - Skin Skin exam: Present: dry, intact
[2017-01-27 15:06] LABS: ANA IgG by ELISA NONE DETECTED (None Detected)
== END 2017-01-26 16:49 | disposition home or self-care (01) | DRG 720 ==
LOC: 3ANU 15:33 → EMEROO 15:33 → SUATTDRO 17:47 → 3ANU 18:01
PROVIDERS: ADMIT Internal Medicine; ATTEND Internal Medicine

== ENCOUNTER 2020-07-21 20:31 | Observation (INO) ==
[2020-07-22] MEDS ORDERED: Naloxone 0.4 MG/ML INJ IVP PRN ×2 (00:07→19:52)
[2020-07-22] MEDS ORDERED: *HR* Promethazine 25 MG/ML VIAL IM PRN (00:07)
[2020-07-22] MEDS ORDERED: Ondansetron 4 MG/2 ML VIAL IVP PRN ×2 (00:07→19:52)
[2020-07-22] MEDS ORDERED: Melatonin 3 MG TABLET PO PRN ×2 (00:07→19:52)
[2020-07-22] MEDS ORDERED: Ketorolac 30 MG/ML VIAL IVP ONE (00:14)
[2020-07-22] MEDS ORDERED: 0.9 % Sodium Chloride 1,000 ML IVC SCH ×3 (00:15→19:52)
[2020-07-22] MEDS ORDERED: cefTRIAXone 1,000 MG in Water for inj. (sterile) 10 ML IVP SCH (01:00)
[2020-07-22 05:15] LABS: Basophils # 0.1 K/mcL (0.0-0.2); Basophils % 0.5 %; Eosinophils # 0.3 K/mcL (0.0-0.6); Eosinophils % 2.6 %; Hematocrit 36.6 % (35.3-44.9); Hemoglobin 12.1 g/dL (11.5-15.4); Immature Granulocytes % 0.4 % (0-4); Lymphocytes % 30.3 %; Mean Corpuscular HGB Conc 33.1 g/dL (31.6-35.5); Mean Corpuscular Volume 90.8 fL (83.0-100.0); Mean Platelet Volume 10.6 fL (9.4-12.4); Monocytes # 0.7 K/mcL (0.0-1.3); Monocytes % 5.2 %; Platelet Count 353 K/mcL (140-400); Red Blood Count 4.03 M/mcL (3.82-4.97); Red Cell Distribution Width 12.4 % (11.5-14.5); White Blood Count 13.2 K/mcL (4.3-11.1)
[2020-07-22 05:36] LABS: BUN/Creatinine Ratio 13 (6-26); Blood Urea Nitrogen 10 mg/dL (6-20); Calcium 8.1 mg/dL (8.6-10.3); Carbon Dioxide 23 mEq/L (23-29); Chloride 108 mEq/L (98-107); Glucose 99 mg/dL (70-105); Osmolality,Calculated 285 (280-300); Potassium 3.5 mEq/L (3.5-5.1); Sodium 138 mEq/L (136-145); eGFR For African Americans > 60 (> 60); eGFR For Non-African Americans > 60 (> 60)
[2020-07-22 11:43] LABS: Adenovirus Not Detected (Not Detect); Bordetella Pertussis Not Detected (Not Detect); Chlamydophila pneumoniae Not Detected (Not Detect); Coronavirus 229E Not Detected (Not Detect); Coronavirus HKU1 Not Detected (Not Detect); Coronavirus NL63 Not Detected (Not Detect); Coronavirus OC43 Not Detected (Not Detect); Human Metapneumovirus Not Detected (Not Detect); Human Rhinovirus/Enterovirus Not Detected (Not Detect); Influenza A Subtype 2009 H1 Not Detected (Not Detect); Influenza B Not Detected (Not Detect); Mycoplasma pneumoniae Not Detected (Not Detect); Parainfluenza Virus 1 Not Detected (Not Detect); Parainfluenza Virus 2 Not Detected (Not Detect); Parainfluenza Virus 3 Not Detected (Not Detect); Parainfluenza Virus 4 Not Detected (Not Detect); Respiratory Syncytial Virus Not Detected (Not Detect); SARS-CoV-2 Not Detected (Not Detect)
[2020-07-22] MEDS ORDERED: Ketorolac 30 MG/ML VIAL IVP PRN (12:06)
[2020-07-22] MEDS ORDERED: *HR* FentaNYL (PF) 100 MCG/2 ML VIAL ONE (17:41)
[2020-07-22] MEDS ORDERED: *HR* Midazolam HCl 2 MG/2 ML VIAL ONE (17:41)
[2020-07-22] MEDS ORDERED: *HR* Propofol 200 MG/20 ML VIAL IVP ONE (17:41)
[2020-07-22] MEDS ORDERED: Lidocaine -MPF 2% 2 ML VIAL ONE (17:46)
[2020-07-22] MEDS ORDERED: Ondansetron 4 MG/2 ML VIAL ONE (17:46)
[2020-07-22] MEDS ORDERED: Isovue-300 50ML VIAL ONE (17:58)
[2020-07-22] MEDS ORDERED: Lidocaine HCL 4 ML Topical Solution (Laryng-O-Jet Kit Sterile Pak) TP ONE (18:09)
[2020-07-22] MEDS ORDERED: *HR* HYDROmorphone PF 0.5 MG/0.5 ML SYRINGE IVP PRN (19:14)
[2020-07-22] MEDS ORDERED: Ondansetron 4 MG/2 ML VIAL IM ONE (19:52)
[2020-07-22] MEDS: Ketorolac 30 MG/ML VIAL IVP PRN (20:41)
[2020-07-22] MEDS ORDERED: 0.9 % Sodium Chloride 500 ML IVC ONE ×2 (22:35→23:42)
[2020-07-22] MEDS ORDERED: Albuterol 2.5 MG/3 ML NEBULIZER IH PRN (23:41)
[2020-07-22] MEDS ORDERED: methylPREDNISolone 125 MG/2 ML VIAL IVP ONE (23:41)
[2020-07-23] MEDS: Albuterol 2.5 MG/3 ML NEBULIZER IH SCH ×4 (00:07→11:01)
[2020-07-23] MEDS ORDERED: cefTRIAXone 1,000 MG in Water for inj. (sterile) 10 ML IVP SCH (01:00)
[2020-07-23] MEDS ORDERED: Fluconazole 150 MG TABLET PO ONE (09:04)
[2020-07-23] MEDS: Ketorolac 30 MG/ML VIAL IVP PRN (10:35)
[2020-07-23 11:39] VITALS: BP 175/91
[2020-07-25 22:28] LABS: Calculi Mass 6 mg
== END 2020-07-23 12:10 | disposition home or self-care (01) ==
LOC: 3BNU → SUATTDRO 22:09
PROVIDERS: ADMIT Family Medicine; ATTEND Internal Medicine

== ENCOUNTER 2020-11-19 10:21 | Observation (INO) ==
[2020-11-19 12:23] LABS: Basophils # 0.1 K/mcL (0.0-0.2); Basophils % 0.6 %; Eosinophils # 0.7 K/mcL (0.0-0.6); Eosinophils % 4.4 %; Hemoglobin 12.6 g/dL (11.5-15.4); Immature Granulocytes % 0.4 % (0-4); Lymphocytes # 3.3 K/mcL (0.6-4.6); Lymphocytes % 22.8 %; Mean Corpuscular HGB Conc 32.3 g/dL (31.6-35.5); Mean Corpuscular Hemoglobin 29.7 pg (28.0-33.3); Mean Platelet Volume 10.2 fL (9.4-12.4); Monocytes # 0.7 K/mcL (0.0-1.3); Monocytes % 4.6 %; Neutrophils # 9.8 K/mcL (1.6-8.9); Platelet Count 351 K/mcL (140-400); Red Blood Count 4.24 M/mcL (3.82-4.97); Red Cell Distribution Width 12.8 % (11.5-14.5); Segmented Neutrophils % 67.2 %; White Blood Count 14.6 K/mcL (4.3-11.1)
[2020-11-19 12:53] LABS: Amorphous Sediment,Urine Few per hpf (None-Few); Bacteria,Urine Few per hpf (None-Few); Bilirubin,Urine Negative (Negative); Blood,Urine Trace (Negative); Clarity,Urine Ex.Turbid (Clear); Color,Urine Yellow (Yellow); Glucose,Urine (UA) Normal (Normal); Ketones,Urine Negative (Negative); Leukocyte Esterase,Urine Moderate (Negative); Mucus,Urine Few per lpf (None-Few); Nitrite,Urine Positive (Negative); Protein,Urine Trace mg/dL (Neg-Trace); RBC,Urine 15-30 per hpf (0-3); Specific Gravity,Urine 1.028 (1.010-1.025); Squamous Epithelial Cell,Urine Few per hpf (None-Few); Urobilinogen,Urine Normal (Normal); WBC,Urine 15-30 per hpf (0-3)
[2020-11-19] MEDS ORDERED: 0.9 % Sodium Chloride 1,000 ML IV ONE ×2 (12:54→16:56)
[2020-11-19] MEDS ORDERED: Ondansetron 4 MG/2 ML VIAL IVP PRN ×2 (12:54→15:54)
[2020-11-19] MEDS ORDERED: Morphine Sulfate 2 MG/ML SYRINGE IVP ONE (12:54)
[2020-11-19 13:01] LABS: BUN/Creatinine Ratio 21 (6-26); Blood Urea Nitrogen 14 mg/dL (6-20); Carbon Dioxide 26 mEq/L (23-29); Chloride 105 mEq/L (98-107); Glucose 89 mg/dL (70-105); Osmolality,Calculated 290 (280-300); Potassium 4.5 mEq/L (3.5-5.1); Sodium 140 mEq/L (136-145); eGFR For African Americans > 60 (> 60); eGFR For Non-African Americans > 60 (> 60)
[2020-11-19] MEDS ORDERED: cefTRIAXone 1,000 MG in 0.9 % Sodium Chloride Mini Bag 100 ML IVPB ONE (14:22)
[2020-11-19] MEDS ORDERED: Naloxone 0.4 MG/ML INJ IVP PRN (15:54)
[2020-11-19] MEDS ORDERED: *HR* OxyCODONE Immed Rel 5 MG TABLET PO PRN (15:55)
[2020-11-19] MEDS ORDERED: 0.9 % Sodium Chloride 1,000 ML IVC SCH (16:00)
[2020-11-19] MEDS: Ketorolac 30 MG/ML VIAL IVP SCH ×2 (18:19→23:44)
[2020-11-19] MEDS ORDERED: Ipratropium/Albuterol Neb 3 ML IH ONE (21:12)
[2020-11-20] MEDS: Ketorolac 30 MG/ML VIAL IVP SCH ×3 (05:31→23:14)
[2020-11-20 07:57] LABS: Basophils # 0.1 K/mcL (0.0-0.2); Basophils % 0.6 %; Eosinophils # 0.5 K/mcL (0.0-0.6); Eosinophils % 4.4 %; Hematocrit 37.1 % (35.3-44.9); Hemoglobin 11.8 g/dL (11.5-15.4); Immature Granulocytes % 0.3 % (0-4); Lymphocytes # 3.2 K/mcL (0.6-4.6); Lymphocytes % 26.7 %; Mean Corpuscular HGB Conc 31.8 g/dL (31.6-35.5); Mean Corpuscular Hemoglobin 30.2 pg (28.0-33.3); Mean Corpuscular Volume 94.9 fL (83.0-100.0); Mean Platelet Volume 10.9 fL (9.4-12.4); Monocytes # 0.6 K/mcL (0.0-1.3); Monocytes % 5.4 %; Neutrophils # 7.4 K/mcL (1.6-8.9); Platelet Count 291 K/mcL (140-400); Red Blood Count 3.91 M/mcL (3.82-4.97); Red Cell Distribution Width 12.8 % (11.5-14.5); Segmented Neutrophils % 62.6 %; White Blood Count 11.8 K/mcL (4.3-11.1)
[2020-11-20 08:25] LABS: BUN/Creatinine Ratio 20 (6-26); Blood Urea Nitrogen 15 mg/dL (6-20); Calcium 8.2 mg/dL (8.6-10.3); Carbon Dioxide 24 mEq/L (23-29); Chloride 110 mEq/L (98-107); Glucose 90 mg/dL (70-105); Osmolality,Calculated 286 (280-300); Potassium 4.4 mEq/L (3.5-5.1); Sodium 138 mEq/L (136-145); eGFR For African Americans > 60 (> 60); eGFR For Non-African Americans > 60 (> 60)
[2020-11-20] MEDS ORDERED: 0.9 % Sodium Chloride 1,000 ML IV ONE ×3 (08:49→13:32)
[2020-11-20] MEDS ORDERED: Ibuprofen 800 MG TABLET PO PRN (09:43)
[2020-11-20] MEDS: cefTRIAXone 1,000 MG in 0.9 % Sodium Chloride Mini Bag 100 ML IVPB SCH (14:49)
[2020-11-20] MEDS ORDERED: Morphine Sulfate 2 MG/ML SYRINGE IVP ONE (16:54)
[2020-11-20] MEDS ORDERED: 0.9 % Sodium Chloride 1,000 ML IVC SCH (17:00)
[2020-11-20] MEDS ORDERED: Ketorolac 30 MG/ML VIAL IVP SCH (18:00)
[2020-11-20 19:31] LABS: INR 1.1; Prothrombin Time 12.6 Seconds (9.4-12.1)
[2020-11-20 19:34] LABS: Activated Partial Thrombo Time 35.5 Seconds (26.0-36.0)
[2020-11-21 04:59] LABS: Basophils # 0.1 K/mcL (0.0-0.2); Basophils % 0.5 %; Eosinophils # 0.5 K/mcL (0.0-0.6); Eosinophils % 4.6 %; Hematocrit 35.6 % (35.3-44.9); Hemoglobin 11.3 g/dL (11.5-15.4); Immature Granulocytes % 0.5 % (0-4); Lymphocytes # 3.2 K/mcL (0.6-4.6); Lymphocytes % 28.5 %; Mean Corpuscular HGB Conc 31.7 g/dL (31.6-35.5); Mean Corpuscular Hemoglobin 29.8 pg (28.0-33.3); Mean Corpuscular Volume 93.9 fL (83.0-100.0); Mean Platelet Volume 10.6 fL (9.4-12.4); Monocytes # 0.5 K/mcL (0.0-1.3); Monocytes % 4.9 %; Neutrophils # 6.8 K/mcL (1.6-8.9); Platelet Count 296 K/mcL (140-400); Red Blood Count 3.79 M/mcL (3.82-4.97); Red Cell Distribution Width 12.7 % (11.5-14.5); White Blood Count 11.1 K/mcL (4.3-11.1)
[2020-11-21 05:19] LABS: BUN/Creatinine Ratio 25 (6-26); Blood Urea Nitrogen 16 mg/dL (6-20); Calcium 8.3 mg/dL (8.6-10.3); Carbon Dioxide 23 mEq/L (23-29); Chloride 109 mEq/L (98-107); Glucose 84 mg/dL (70-105); Osmolality,Calculated 282 (280-300); Potassium 4.2 mEq/L (3.5-5.1); Sodium 136 mEq/L (136-145); eGFR For African Americans > 60 (> 60); eGFR For Non-African Americans > 60 (> 60)
[2020-11-21] MEDS: Ketorolac 30 MG/ML VIAL IVP SCH ×4 (05:35→23:57)
[2020-11-21] MEDS ORDERED: 0.9 % Sodium Chloride 1,000 ML IV ONE (09:03)
[2020-11-21] MEDS ORDERED: Acetaminophen IV 1,000 MG/100 ML BAG IVPB ONE ×2 (12:14→12:55)
[2020-11-21] MEDS ORDERED: Famotidine 20 MG/2 ML VIAL IVP ONE (12:14)
[2020-11-21] MEDS ORDERED: Famotidine 20 MG/2 ML VIAL ONE (12:55)
[2020-11-21] MEDS ORDERED: Ondansetron 4 MG/2 ML VIAL ONE (12:59)
[2020-11-21] MEDS ORDERED: *HR* FentaNYL (PF) 100 MCG/2 ML VIAL ONE (12:59)
[2020-11-21] MEDS ORDERED: Lidocaine -MPF 2% 2 ML VIAL ONE (12:59)
[2020-11-21] MEDS ORDERED: *HR* Propofol 200 MG/20 ML VIAL IVP ONE (12:59)
[2020-11-21] MEDS ORDERED: Lidocaine -MPF 4% 5 ML AMPUL ONE (12:59)
[2020-11-21] MEDS ORDERED: Morphine Sulfate 2 MG/ML SYRINGE IVP PRN (13:00)
[2020-11-21] MEDS ORDERED: Ondansetron 4 MG/2 ML VIAL IVP PRN (13:00)
[2020-11-21] MEDS ORDERED: Isovue-300 50ML VIAL ONE (13:03)
[2020-11-21] MEDS ORDERED: Lidocaine HCL 4 ML Topical Solution (Laryng-O-Jet Kit Sterile Pak) TP ONE (13:22)
[2020-11-21] MEDS ORDERED: *HR* Succinylcholine 200 MG/10 ML VIAL IVP ONE (13:24)
[2020-11-21] MEDS ORDERED: EPHEDrine 50 MG/ML VIAL ONE (13:35)
[2020-11-21] MEDS: cefTRIAXone 1,000 MG in 0.9 % Sodium Chloride Mini Bag 100 ML IVPB SCH (15:23)
[2020-11-21] MEDS ORDERED: *HR* OxyCODONE Immed Rel 5 MG TABLET PO ONE (15:40)
[2020-11-21] MEDS: *HR* OxyCODONE Immed Rel 5 MG TABLET PO PRN ×2 (17:52→23:55)
[2020-11-22] MEDS: Ketorolac 30 MG/ML VIAL IVP SCH ×2 (06:08→11:26)
[2020-11-22 07:21] VITALS: O2SAT 100
[2020-11-22] MEDS: *HR* OxyCODONE Immed Rel 5 MG TABLET PO PRN (07:29)
[2020-11-22 10:53] LABS: Basophils # 0.1 K/mcL (0.0-0.2); Basophils % 0.4 %; Eosinophils # 0.1 K/mcL (0.0-0.6); Eosinophils % 0.8 %; Hematocrit 33.3 % (35.3-44.9); Hemoglobin 10.9 g/dL (11.5-15.4); Immature Granulocytes % 0.5 % (0-4); Lymphocytes # 2.1 K/mcL (0.6-4.6); Mean Corpuscular HGB Conc 32.7 g/dL (31.6-35.5); Mean Corpuscular Hemoglobin 30.2 pg (28.0-33.3); Mean Corpuscular Volume 92.2 fL (83.0-100.0); Mean Platelet Volume 10.7 fL (9.4-12.4); Monocytes # 0.9 K/mcL (0.0-1.3); Monocytes % 5.7 %; Neutrophils # 12.8 K/mcL (1.6-8.9); Platelet Count 273 K/mcL (140-400); Red Blood Count 3.61 M/mcL (3.82-4.97); Red Cell Distribution Width 12.4 % (11.5-14.5); Segmented Neutrophils % 79.6 %
[2020-11-22 11:11] LABS: BUN/Creatinine Ratio 16 (6-26); Blood Urea Nitrogen 12 mg/dL (6-20); Calcium 8.6 mg/dL (8.6-10.3); Carbon Dioxide 23 mEq/L (23-29); Chloride 108 mEq/L (98-107); Glucose 107 mg/dL (70-105); Osmolality,Calculated 282 (280-300); Sodium 136 mEq/L (136-145); eGFR For African Americans > 60 (> 60); eGFR For Non-African Americans > 60 (> 60)
[2020-11-22 11:33] VITALS: BP 105/54; PULSE 55; TEMP 98.5
[2020-11-26 17:57] LABS: Calculi Mass 10 mg
== END 2020-11-22 13:44 | disposition home or self-care (01) ==
LOC: 4WAOSI 10:21 → EMEROOARM 10:21 → SUATTDRO 15:47 → 4WAOSI 21:41
PROVIDERS: ADMIT Internal Medicine; ATTEND Family Medicine